=== PATIENT | female | born 1990 | race Caucasian/White ===

== ENCOUNTER 2017-01-14 10:49 | Observation (INO) ==
[2017-01-14 11:25] LABS: Bilirubin,Urine Negative (Negative); Blood,Urine Negative (Negative); Clarity,Urine Cloudy (Clear); Color,Urine Yellow (Yellow); Glucose,Urine (UA) Normal (Normal); Ketones,Urine Negative (Negative); Leukocyte Esterase,Urine Moderate (Negative); Nitrite,Urine Negative (Negative); Protein,Urine Negative (Neg-Trace); Urobilinogen,Urine Normal (Normal)
[2017-01-14 11:26] LABS: INR 1.1; Prothrombin Time 11.5 Seconds (9.4-12.1)
[2017-01-14 11:28] LABS: Bacteria,Urine None Seen per hpf (None-Few); Hyaline Casts,Urine None Seen per lpf (None-Few); RBC,Urine 0-3 per hpf (0-3); Squamous Epithelial Cell,Urine Many per lpf (None-Few)
[2017-01-14 11:29] LABS: Activated Partial Thrombo Time 29.5 Seconds (26.0-36.0)
--- NOTE | 2017-01-14 11:41 | OB/GYN Progress Note ---
Date of Encounter: 01/14/17 Time of Encounter: 11:38 - Assessment and Plan (1) 23 weeks gestation of Current Visit: Yes Status: Acute Patient here for observation (2) Fall Current Visit: Yes Status: Acute Coags, KB and monitoring. Qualifiers: Encounter type: initial encounter Qualified Code(s): W19.XXXA - Unspecified fall, initial encounter Subjective - Subjective Principal diagnosis: fall Interval history: Patient is 26 y/o female G1PO at 23w5d with EDC of 05/08/2017 presents to labor and delivery after falling at work around 1050. Patient was working at [employer] and slipped on wet floor. Patient states she landed on right leg and hand but felt a sharp pain in her lower abdomen. Patient denies LOF or VB. Patient reports +FM. Blood type is A+. Patient denies any complications with . Coags, KB and urinalysis sent to lab. Antepartum ROS: movement normal, no loss of fluid, no vaginal bleeding, no contractions Objective - Exam FHR: auscultation normal FHR comments: 155 bpm moderate variability + accels. appropriate for gestational age. Auscultation: bilateral: normal Abdomen: Present: normal appearance, soft, gravid Comments: No bruising noted on right side of abdomen. Bruising noted on right leg. Patient reports soreness. - Labs Labs: Abnormal lab results Urine Clarity Cloudy (Clear) A 01/14/17 11:10 Ur Leukocyte Esterase Moderate (Negative) H 01/14/17 11:10 Urine Microscopic WBC 5-15 per hpf (0-3) H 01/14/17 11:10 Ur Squamous Epith Cells Many per lpf (None-Few) H 01/14/17 11:10
== END 2017-01-14 13:30 | disposition home or self-care (01) ==
LOC: 1NENULAB
PROVIDERS: ADMIT Student in an Organized Health Care Education/Training Program; ATTEND Student in an Organized Health Care Education/Training Program

== ENCOUNTER 2017-04-14 20:51 | Observation (INO) ==
[2017-04-14 21:40] LABS: Bilirubin,Urine Negative (Negative); Blood,Urine Negative (Negative); Clarity,Urine Cloudy (Clear); Color,Urine Yellow (Yellow); Glucose,Urine (UA) Normal (Normal); Ketones,Urine Negative (Negative); Leukocyte Esterase,Urine Moderate (Negative); Nitrite,Urine Negative (Negative); Protein,Urine 100 mg/dL (Neg-Trace); Urobilinogen,Urine Normal (Normal)
[2017-04-14 21:42] LABS: Bacteria,Urine Few per hpf (None-Few); Hyaline Casts,Urine None Seen per lpf (None-Few); Squamous Epithelial Cell,Urine Many per lpf (None-Few); WBC,Urine 15-30 per hpf (0-3)
--- NOTE | 2017-04-15 12:29 | OB/GYN Progress Note ---
Date of Encounter: 04/14/17 Time of Encounter: 22:00 - Assessment and Plan (1) Pelvic pain affecting in third trimester, antepartum Status: Acute Pt symptoms consistent with UTI. UA sent for culture. Will empirically treat with keflex 500mg po bid for 7 days. Leena RN to call in rx for patient. Discharged to home with labor precautions. Discussed patient with Dr. Martin (2) Urinary pain Status: Acute Subjective - Subjective Interval history: Per RN report. Pt in traige complaining of lower pelvic pressure adn pain with urination. Denies vaginal bleeding or leaking of fluid Antepartum ROS: new complaints, movement normal, no loss of fluid, no vaginal bleeding Objective - Vital Signs Vital Signs: Intake and Output 04/14/17 04/15/17 04/15/17 23:59 07:59 15:59 Other: Weight 95.4 kg - Exam FHR comments: Reactive per RN - Labs Labs: Abnormal lab results Urine Clarity Cloudy (Clear) A 04/14/17 21:28 Ur Specific [place] 1.030 (1.010-1.025) H 04/14/17 21:28 Urine Protein 100 mg/dL (Neg-Trace) H 04/14/17 21:28 Ur Leukocyte Esterase Moderate (Negative) H 04/14/17 21:28 Urine Microscopic RBC 5-15 per hpf (0-3) H 04/14/17 21:28 Urine Microscopic WBC 15-30 per hpf (0-3) H 04/14/17 21:28 Ur Squamous Epith Cells Many per lpf (None-Few) H 04/14/17 21:28 Ur Culture Indicated? YES (NO) A 04/14/17 21:28
== END 2017-04-14 22:27 | disposition home or self-care (01) ==
LOC: 1NENULAB
PROVIDERS: ADMIT Obstetrics & Gynecology; ATTEND Obstetrics & Gynecology

== ENCOUNTER 2017-04-22 17:50 | Inpatient (IN) ==
[2017-04-22 16:12] LABS: Basophils % 0.3 %; Eosinophils # 0.3 K/mcL (0.0-0.6); Eosinophils % 2.8 %; Hemoglobin 10.5 g/dL (11.5-15.4); Immature Granulocytes % 0.7 % (0-4); Lymphocytes # 1.5 K/mcL (0.6-4.6); Mean Corpuscular HGB Conc 31.8 g/dL (31.6-35.5); Mean Corpuscular Hemoglobin 24.8 pg (28.0-33.3); Mean Platelet Volume 11.1 fL (9.4-12.4); Monocytes # 0.7 K/mcL (0.0-1.3); Monocytes % 6.8 %; Platelet Count 250 K/mcL (140-400); Red Blood Count 4.23 M/mcL (3.82-4.97); Red Cell Distribution Width 15.8 % (11.5-14.5); Segmented Neutrophils % 73.4 %
[2017-04-22 16:28] LABS: Alanine Aminotransferase 14 Units/L (0-55); Aspartate Amino Transferase 16 Units/L (5-34); BUN/Creatinine Ratio 13 (6-26); Blood Urea Nitrogen 7 mg/dL (7-20); Lactate Dehydrogenase 183 Units/L (159-327); Uric Acid 4.6 mg/dL (2.6-6.0); eGFR For African Americans > 60 (> 60); eGFR For Non-African Americans > 60 (> 60)
[2017-04-22 17:26] LABS: Protein/Creatinine Ratio,Urine 0.8 mg/mg (0-0.20)
--- NOTE | 2017-04-22 17:57 | OB/GYN History & Physical ---
Date of Encounter: 04/22/17 Time of Encounter: 17:52 Assessment and Plan (1) Pre-eclampsia Current visit: Yes Status: Acute BPs normal to mild range Protein/creatinine ratio 0.8 Admit for IOL for pre-eclampsia at term Plan for cytotec and mims Epidural when requested Magnesium if BPs severe range or patient becomes symptomatic. Anticipate . Plan of care per discussion with Dr. Frye. Qualifiers: Trimester: third trimester Qualified Code(s): O14.93 - Unspecified pre- eclampsia, third trimester (2) 37 weeks gestation of Current visit: Yes Status: Acute (3) Obesity affecting in third trimester, antepartum Current visit: Yes Status: Acute (4) Rubella non-immune status, antepartum Current visit: Yes Status: Acute Vaccine History of Present Illness Chief complaint: PIH evaluation HPI: Ms. John is a 26 year old female 37w5d G1 that presents to L & D from the office for PIH evaluation. In the office, BPs were 140s/90s and 150s/90s. Patient currently denies any headaches, dizziness, visual changes, and RUQ pain at this time. Patient denies any problems with her or other complaints.This has been complicated by obesity and liver lesions for which she saw MFM who recommended continued care with insurance sales specialist group. Blood type A positive, GBS negative, serologies negative; Rubella non-immune. Good FM. Past Med Surg Social Fam HX - Past Medical History Medical history: no medical history Psychiatric history: anxiety, depression - Past Surgical History Surgical History: no surgical history - Social History Smoking Status: Former smoker Smokeless Tobacco Status: No Alcohol use: none Drug use: none - Family History Mother Adopted: No Family Member Ethnicity: Non- Living Status: Still Living Hx Family Cardiac Disorders: Yes (hypertension) Hx Family Respiratory Disorders: No Hx Family Cancer: Yes (endometriosis) Hx Family GI Disorders: No Hx Family Endocrine Disorder: Yes (diabetes) Hx Family Neuromuscular Disorders: No Hx Family Neurologic Disorders: No Hx Family HEENT Disorders: No Hx Family Autoimmune Disorders: No Obstetrical History - Pregnancies : 1 Medications and Allergies No Known Home Drugs 04/22/17 [History] Allergies Sulfa (Sulfonamide Antibiotics) Allergy (Verified 03/24/17 12:16) Swelling of Lip/Tongue/Throat Review of System OB All systems PM: reviewed and no additional remarkable complaints except as stated Exam - Constitutional Constitutional: well developed, well nourished, no acute distress, obese - Lungs Respiratory exam: CTAB - Cardiovascular Cardiovascular exam: RRR - Abdomen Abdomen: Present: gravid, non tender. Absent: diffuse tenderness - Extremities Extremities exam: full ROM, pedal edema (Mild bilateral edema) - Uterus Uterus exam: Present: normal size - Anus/Rectum Anus/Rectum: Present: normal perianal skin Results Result Diagrams: 04/22/17 15:55 04/22/17 15:55 Abnormal lab results Hgb 10.5 g/dL (11.5-15.4) L 04/22/17 15:55 Hct 33.0 % (35.3-44.9) L 04/22/17 15:55 MCV 78.0 fL (83.0-100.0) L 04/22/17 15:55 MCH 24.8 pg (28.0-33.3) L 04/22/17 15:55 RDW 15.8 % (11.5-14.5) H 04/22/17 15:55 Creatinine 0.54 mg/dL (0.57-1.11) L 04/22/17 15:55 Protein/Creatinin Ratio 0.80 mg/mg (0-0.20) H 04/22/17 16:00 Urine Total Protein 120 mg/dL (1-14) H 04/22/17 16:00 All other labs normal. - VTE Reasons for not Prescribing Prophylaxis: Treatment not Indicated - Low risk for VTE
--- NOTE | 2017-04-22 18:01 | Anesthesia Evaluation PreOp ---
Date of Encounter: 04/22/17 Time of Encounter: 17:59 - Past History Planned Operation: chantal Cardiac History: HTN (PIH, preeclampsia) Pulmonary History: Denies Any Significant HX LEACH TANK TENDER History: Denies Any Significant HX Other Medical History: Denies Any Significant HX Anesthesia History: No Prior Anesthetic Complications : Yes (37 weeks, ) Alcohol Use: none Drug use: none Medications and Allergies No Known Home Drugs 04/22/17 [History] Allergies Sulfa (Sulfonamide Antibiotics) Allergy (Verified 03/24/17 12:16) Swelling of Lip/Tongue/Throat - Meds/Allergy Pre-op Review Medications Reviewed: Yes Allergies Reviewed: Yes Beta Blockers on Current Med List: No Anesthesia Results - Labs 04/22/17 15:55 04/22/17 15:55 Anesthesia Exam O2 Sat Height 1.6 m Weight 95.6 kg BP 132/92 HR 80 RR 18 SPO2 98 Height: 63 Weight: 96 - HEENT Pupil (Motor): Pupils equal Mallampati: II Teeth: Normal Oral Opening: Greater than 3 - LEACH TANK TENDER LOC: Oriented LEACH TANK TENDER Motor: Normal RUE, Normal LUE, Normal RLE, Normal LLE, Normal Face LEACH TANK TENDER Sensory: Normal: RUE, LUE, RLE, LLE, Face - Cardiac Rhythm: Regular Murmur: None JVD: No Carotid Bruit: No - Pulmonary Breath Sounds: bilateral Clear Respiratory Effort: Symmetrical Anesthesia Assess/Plan ASA Score: 2 Modified [place] Scale for Level of Consciousness: Cooperative, oriented, and tranquil Anesthetic Plan: Regional Monitoring Plan: Standard Monitors
[2017-04-22] MEDS ORDERED: Famotidine 20 MG/2 ML VIAL IVP PRN (19:21)
[2017-04-22] MEDS ORDERED: Naloxone 0.4 MG/ML INJ IVP PRN (19:21)
[2017-04-22] MEDS ORDERED: miSOPROStol 25 MCG TABLET VG PRN (19:22)
[2017-04-22] MEDS ORDERED: *HR* Labetalol 20 MG/4 ML SYRINGE IVP ONE (19:24)
[2017-04-22] MEDS ORDERED: Ringers Solution, Lactated 1,000 ML ONE (19:27)
[2017-04-22] MEDS ORDERED: Magnesium Sulfate 2 GM/100 ML PIGGYBACK IV SCH (19:45)
--- NOTE | 2017-04-22 19:46 | OB Labor Progress Note ---
Date of Encounter: 04/22/17 Time of Encounter: 19:44 Labor Progress Note - Subjective Subjective: Pt comfortable at this time. She denies ZENDEJAS, vision changes, or other complaints. - Vital Signs Vital Signs: BP's severe range at this time 160's-180's/80's-100's. - Cervix Cervix: 60/-2 - Heart Tones Heart Tones: Category I - [place]: irregular and mild - Interventions Interventions: Holliday placed in cervix using sterile technique. Balloon inflated with 30ml sterile water. Pt tolerated well. - Plan Plan: Labetalol 20mg IVP x1 now. Magnesium sulfate 4gram load and then 2g per hour. Continue to monitor closely. Epidural when needed. Will AROM when able. Anticipate . POC per Dr. Frye co-managing care of this pre-eclamptic patient.
[2017-04-22] MEDS: Ringers Solution, Lactated 1,000 ML IVC SCH (19:53)
[2017-04-22] MEDS: Magnesium Sulfate 20 gm/500mL 20 GM/500 ML IV.SOLN IVC SCH (20:32)
[2017-04-22] MEDS ORDERED: *HR* Nalbuphine 20 MG/ML AMPUL IVP PRN (21:08)
[2017-04-22] MEDS ORDERED: *HR* Nalbuphine 20 MG/ML AMPUL ONE (21:09)
--- NOTE | 2017-04-22 22:13 | OB Labor Progress Note ---
Date of Encounter: 04/22/17 Time of Encounter: 22:09 Labor Progress Note - Subjective Subjective: Pt reports pain is gone with Nubain. - Cervix Cervix: 4/80/-1 - Heart Tones Heart Tones: Category I - [place]: irregular - Interventions Interventions: AROM for moderate amount clear fluid. IUPC placed - Plan Plan: Continue to monitor. Pt doing well on 2g/hr magnesium sulfate. BP now normal. Epidural when requested. Will augment with Pitocin as needed for adequate contractions. Anticipate .
[2017-04-22] MEDS ORDERED: Oxytocin 20 units/ LR 1000 mL 20 UNIT/1,000 ML BAG IVC SCH (23:45)
[2017-04-23] MEDS ORDERED: Calcium Gluconate 1,000 MG/10 ML VIAL IVPB ONE (00:24)
[2017-04-23] MEDS: Ondansetron 4 MG/2 ML VIAL IVP PRN ×2 (01:08→10:32)
[2017-04-23] MEDS ORDERED: *HR* Ropivacaine/PF 0.2% 10 ML AMPUL ONE ×2 (03:16→14:25)
[2017-04-23] MEDS ORDERED: *HR* FentaNYL (PF) 100 MCG/2 ML VIAL ONE ×2 (03:16→14:25)
[2017-04-23] MEDS ORDERED: Epidural Premix (fent/bupiv) 110 ML EP ONE ×2 (03:16→11:19)
[2017-04-23] MEDS ORDERED: *HR* FentaNYL (PF) 100 MCG/2 ML VIAL EP ONE (03:47)
[2017-04-23] MEDS ORDERED: EPHEDrine 50 MG/ML VIAL IVP PRN (03:47)
[2017-04-23] MEDS ORDERED: *HR* Ropivacaine/PF 0.2% 10 ML AMPUL EP ONE (03:47)
--- NOTE | 2017-04-23 03:50 | Anesthesia Procedures ---
Date of Encounter: 04/23/17 Time of Encounter: 03:21 Procedures: Anesthesia - Epidural/Spinal Patient ID/Chart reviewed: Yes Patient examined: Yes OB Eval: Contractions: Non-stressed pattern Consent Obtained: Yes Supplemental Oxygen: None/Room Air Site Prep: Aseptic Technique Patient position: upright Local Anesthetic: Lidocaine 1% Amount of Local Anesthetic used: 3 Touhy Needle Gauge: 18 Touhy Needle Depth (cm): 7 Catheter Depth at Skin (cm): 15 Test Dose (1.5% Lido + Epi): Volume given (mls): 3 Test Dose Result: Negative Loading Dose: 0.25% Marcaine (mls): 6 Loading Dose: Fentanyl (mcg): 100 Loading Dose: Other: 2ml nss Loading Dose Administered: Thru Touhy Needle Infusion Med: 0.125% Bupivacaine w/ 2 mcg/ml Fentanyl Infusion Rate (mls/hr): [address]: Tegaderm Interspace Used: L3-L4 Loss of Resistance (LAL): Yes Blood: No CSF: No Paresthesia: No
[2017-04-23] MEDS ORDERED: Epidural Premix (fent/bupiv) 110 ML EP SCH (04:00)
[2017-04-23] MEDS: Magnesium Sulfate 20 gm/500mL 20 GM/500 ML IV.SOLN IVC SCH (06:11)
--- NOTE | 2017-04-23 07:08 | OB Labor Progress Note ---
Date of Encounter: 04/23/17 Time of Encounter: 07:04 Labor Progress Note - Subjective Subjective: Pt comfortable with epidural - Cervix Cervix: 5/80/-1 - Heart Tones Heart Tones: Minimal variability, occassional late decelerations noted since epidural. - [place]: irregular - Interventions Interventions: IUPC replaced - Plan Plan: Continue to monitor. Fluid bolus to maintain BP in normal range. Will discuss POC with Dr. Frye and Dr. Phelps this am. Concern for no progress since 0 this am as well as concerns with FHT tracing due to lower BP since epidural.
[2017-04-23] MEDS ORDERED: Ringers Solution, Lactated 500 ML IVC ONE (08:15)
[2017-04-23] MEDS ORDERED: Acetaminophen 325 MG TABLET PO ONE (10:18)
[2017-04-23] MEDS: Ringers Solution, Lactated 1,000 ML IVC SCH ×2 (10:27→23:57)
--- NOTE | 2017-04-23 12:28 | OB Labor Progress Note ---
Date of Encounter: 04/23/17 Time of Encounter: 12:26 Labor Progress Note - Subjective Subjective: Pt comfortable with epidural, feeling more pressure - Vital Signs Vital Signs: 126/64 - Cervix Cervix: 7/90/-1 - Heart Tones Heart Tones: RNST - Interventions Interventions: will decrease Magnesium to 1 gm/hr - Plan Plan: Expect
[2017-04-23] MEDS ORDERED: Magnesium Sulfate 20 gm/500mL 20 GM/500 ML IV.SOLN IVC SCH ×2 (12:30→18:15)
--- NOTE | 2017-04-23 14:35 | Anesthesia Progress Note ---
Date of Encounter: 04/23/17 Time of Encounter: 14:33 Anesthesia Note - Note Note: Called to patient bedside to evaluate breakthrough labor pain. Pt c/o 10/10 bilateral lower abdominal pain. Patient positioned from R side down to supine. 5mL of 0.2% ropivicaine + 100mcg fentanyl administered via epidural catheter. VSS 04/23/17 14:33
[2017-04-23] MEDS ORDERED: Lidocaine 1% 20 ML MDV ONE (16:59)
--- NOTE | 2017-04-23 17:35 | OB/GYN Procedure Note ---
Delivery - Delivery Date: 04/23/17 Provider: Kenna Montiel Intrapartum events: none Delivery induction: AROM, oxytocin, mims, misoprostol Delivery monitor: external FHT, external uterine, internal uterine Anesthesia: epidural Estimated Blood Loss: 100 - Infant (s) Infant A Infant Delivery Date: 04/23/17 Infant Delivery Time: 16:53 Presentation: vertex Position: YUNI Route of delivery: Gender: Female Viability: Viable Weight Gram: 2.78 kg at 1 minute: 4 at 5 mins: 9 Shoulder Dystocia: not encountered Specimens collected: cord blood Placenta: spontaneous Cord: 3 umbilical vessels - Repair Episiotomy: none Laceration Description: Perineal - 1st Degree - Complications Delivery complications: none Delivery comments: Pt complete, directed maternal bearing down efforts to of a liveborn girl, vertex delivered YUNI, shoulders easily followed, no nuchal or shoulder dystocia encountered, bradycardia noted at end of delivery. placed on maternal abdomen, and no spontaneous respirations noted umbilical cord clamped and cut and infant passed to nursery staff. Placenta delivered spontaneously (Alonzo) , fundus firm, Pitocin per policy EBL 100. First-degree perineal laceration noted left hemostatic and unrepaired. Dr. Phelps arrived for delivery at end of delivery, delivery performed by CNM. - Disposition Mom disposition: stable in LDR disposition: stable in LDR
[2017-04-23] MEDS ORDERED: Lanolin 28 GM TUBE TP PRN (17:56)
[2017-04-23] MEDS ORDERED: Measles/Mumps/Rubella Vacc 0.5 ML VIAL SQ PRN (17:56)
[2017-04-23] MEDS ORDERED: Acetaminophen 325 MG TABLET PO PRN (17:56)
[2017-04-23] MEDS ORDERED: Oxytocin 20 units/ LR 1000 mL 20 UNIT/1,000 ML BAG IVC SCH (17:56)
[2017-04-23] MEDS ORDERED: Benzocaine/Menthol 56 GM AEROSOL SPRAY TP PRN (17:56)
--- NOTE | 2017-04-23 18:46 | Event Note ---
Date of Encounter: 04/23/17 Time of Encounter: 18:45 RN updated CNM about elevated BP in PP recovery period. Disucssed with Dr. Phelps. Will order labetalol 200mg pox1 now
[2017-04-23] MEDS: Ibuprofen 600 MG TABLET PO PRN (19:10)
[2017-04-23] MEDS ORDERED: Ringers Solution, Lactated 1,000 ML ONE (23:44)
[2017-04-24 06:47] LABS: Basophils # 0.1 K/mcL (0.0-0.2); Basophils % 0.3 %; Eosinophils # 0.1 K/mcL (0.0-0.6); Eosinophils % 0.8 %; Hematocrit 29.6 % (35.3-44.9); Hemoglobin 9.4 g/dL (11.5-15.4); Immature Granulocytes % 0.6 % (0-4); Lymphocytes # 2.6 K/mcL (0.6-4.6); Lymphocytes % 16.3 %; Mean Corpuscular HGB Conc 31.8 g/dL (31.6-35.5); Mean Corpuscular Hemoglobin 25.2 pg (28.0-33.3); Mean Corpuscular Volume 79.4 fL (83.0-100.0); Mean Platelet Volume 11.3 fL (9.4-12.4); Monocytes % 6.4 %; Neutrophils # 11.9 K/mcL (1.6-8.9); Platelet Count 244 K/mcL (140-400); Red Blood Count 3.73 M/mcL (3.82-4.97); Red Cell Distribution Width 15.9 % (11.5-14.5); Segmented Neutrophils % 75.6 %
--- NOTE | 2017-04-24 08:30 | OB/GYN Progress Note ---
Date of Encounter: 04/24/17 Time of Encounter: 08:23 - Assessment and Plan (1) PIH ( induced hypertension) Current Visit: Yes Status: Acute Magnesium x 24 VSS Continue to monitor vitals closely Continue routine PIH care Qualifiers: Trimester: third trimester Qualified Code(s): O13.3 - Gestational [ -induced] hypertension without significant proteinuria, third trimester (2) Vaginal delivery Current Visit: Yes Status: Acute Doing well day 1 Continue routine management Anticipate discharge home tomorrow as long as Vital signs remain stable Subjective - Subjective Principal diagnosis: PIH Interval history: Patient doing well Day 1 vaginal delivery On magnesium for 24 hours due to PIH VSS Passing flatus, mims catheter in place Pain well controlled Patient is both breast and bottle feeding Anticipate discharge home tomorrow if vital signs remain stable. Patient reports: appetite normal, voiding normally (Mims catheter present), pain well controlled, ambulating normally (bedrest for magnesium) : doing well, nursing well, bottle feeding Objective - Latest Vital Signs Latest vital signs: Vital Signs Temp Pulse Resp BP Pulse Ox 04/24/17 07:00 98.1 F 75 14 131/81 97 04/24/17 06:10 98.5 F 85 14 114/73 97 04/24/17 05:00 98.2 F 82 14 113/73 97 04/24/17 04:00 98.2 F 83 14 106/69 97 04/24/17 03:00 74 16 110/64 04/24/17 02:10 98.3 F 92 14 123/74 97 04/24/17 01:05 98.2 F 79 14 121/74 96 04/24/17 00:10 98.0 F 78 16 117/74 97 04/23/17 23:10 98.1 F 81 16 114/71 97 04/23/17 22:10 77 14 131/74 04/23/17 22:00 97.9 F 77 14 131/74 97 04/23/17 21:16 97.9 F 73 16 128/81 97 04/23/17 20:00 97.8 F 83 16 148/87 98 Intake and Output 04/23/17 04/24/17 04/24/17 23:59 07:59 15:59 Intake Total 1000 / 1000 Output Total 1575 / 1575 1800 / 1800 Balance -575 / -575 -1800 / -1800 Intake: IV Fluids 1000 / 1000 Lactated Ringers 1,000 ML 1000 / 1000 @ 125 mls/hr IVC .Q8H [facility] Rx#:[id number] Output: Urine 1175 / 1175 925 / 925 Estimated Blood Loss 100 / 100 Catheter 300 / 300 875 / 875 Other: Stool Characteristics Normal for Patient Normal for Patient Weight 93.667 kg - Exam Lungs: bilateral: normal Chest: Normal S1, Normal S2 Extremities: Present: normal Abdomen: Present: normal appearance, soft. Absent: gravid Uterus: Present: normal, firm Uterus Position: 1 Finger Below Umbilicus, Midline - Labs Labs: Laboratory Results - last 24 hr 04/23/17 04/24/17 15:09 06:37 WBC 15.8 H D RBC 3.73 L Hgb 9.4 L Hct 29.6 L MCV 79.4 L MCH 25.2 L MCHC 31.8 RDW 15.9 H Plt Count 244 MPV 11.3 Immature Gran % 0.6 Seg Neutrophils % 75.6 Lymphocytes % 16.3 Monocytes % 6.4 Eosinophils % 0.8 Basophils % 0.3 Neutrophils # 11.9 H Lymphocytes # 2.6 Monocytes # 1.0 Eosinophils # 0.1 Basophils # 0.1 Magnesium 4.3 H
[2017-04-24] MEDS: Prenatal Vit/FA 1 EACH TABLET PO SCH (09:37)
[2017-04-24] MEDS: Ibuprofen 600 MG TABLET PO PRN ×2 (09:40→19:42)
[2017-04-24] MEDS ORDERED: Ringers Solution, Lactated 1,000 ML ONE (10:12)
[2017-04-24] MEDS ORDERED: Ringers Solution, Lactated 1,000 ML IVC SCH (10:30)
[2017-04-25] MEDS: Ibuprofen 600 MG TABLET PO PRN (05:52)
--- NOTE | 2017-04-25 09:26 | Discharge Summary ---
Date of Encounter: 04/25/17 Time of Encounter: 09:24 - Discharge Diagnosis (1) Breast feeding status of mother Priority: Secondary Status: Acute Comments: support prn (2) Vaginal delivery Priority: Primary Status: Acute Comments: continue routine care discharge home today follow up in 4-6 weeks with CNM (3) PIH ( induced hypertension) Priority: Secondary Status: Acute Comments: Continue labetalol 200mg po BID follow up in 1 week for nurse visit for BP check Qualifiers: Trimester: third trimester Qualified Code(s): O13.3 - Gestational [ -induced] hypertension without significant proteinuria, third trimester - Discharge Medications Prescriptions: Ibuprofen [Motrin] 600 mg PO Q6HR PRN #60 tablet PRN Reason: Cramping Breast Pump [BREAST PUMP] 1 each .ROUTE AD #1 each Labetalol [Trandate] 200 mg PO BID #60 tablet Home Medications: Breast Pump [BREAST PUMP] 1 each .ROUTE AD #1 each 04/25/17 [Rx] Ibuprofen [Motrin] 600 mg PO Q6HR PRN #60 tablet 04/25/17 [Rx] Labetalol [Trandate] 200 mg PO BID #60 tablet 04/25/17 [Rx] Vit/FA 1 each PO DAILY tablet 04/25/17 [Rx] Allergies/Adverse Reactions: Allergies Sulfa (Sulfonamide Antibiotics) Allergy (Verified 03/24/17 12:16) Swelling of Lip/Tongue/Throat Data Procedures and tests throughout hospitalization: Laboratory Tests 04/22/17 04/22/17 04/22/17 15:55 15:55 16:00 WBC 9.6 RBC 4.23 Hgb 10.5 L Hct 33.0 L MCV 78.0 L MCH 24.8 L MCHC 31.8 RDW 15.8 H Plt Count 250 MPV 11.1 Immature Gran % 0.7 Seg Neutrophils % 73.4 Lymphocytes % 16.0 Monocytes % 6.8 Eosinophils % 2.8 Basophils % 0.3 Neutrophils # 7.0 Lymphocytes # 1.5 Monocytes # 0.7 Eosinophils # 0.3 Basophils # 0.0 BUN 7 Creatinine 0.54 L Est GFR ( Amer) > 60 Est GFR (Non-Af Amer) > 60 BUN/Creatinine Ratio 13 Uric Acid 4.6 Magnesium AST 16 ALT 14 Lactate Dehydrogenase 183 Urine Creatinine 151 Protein/Creatinin Ratio 0.80 H Urine Total Protein 120 H 04/23/17 04/24/17 15:09 06:37 WBC 15.8 H D RBC 3.73 L Hgb 9.4 L Hct 29.6 L MCV 79.4 L MCH 25.2 L MCHC 31.8 RDW 15.9 H Plt Count 244 MPV 11.3 Immature Gran % 0.6 Seg Neutrophils % 75.6 Lymphocytes % 16.3 Monocytes % 6.4 Eosinophils % 0.8 Basophils % 0.3 Neutrophils # 11.9 H Lymphocytes # 2.6 Monocytes # 1.0 Eosinophils # 0.1 Basophils # 0.1 BUN Creatinine Est GFR ( Amer) Est GFR (Non-Af Amer) BUN/Creatinine Ratio Uric Acid Magnesium 4.3 H AST ALT Lactate Dehydrogenase Urine Creatinine Protein/Creatinin Ratio Urine Total Protein Date of admission: 04/22/17 17:50 Primary care physician: Jeannie Zamudio CNP Consults: 04/23/17 17:56 Consult to Event Manager [CONS] Routine Comment: Vaginal delivery, consult needed Discharging clinician: Abril Bland Anticipated date of discharge: 04/25/17 - Patient Status Disposition: Home, Self-Care Condition: Good Functional capacity at discharge: independent ambulation - Discharge Instructions Follow Up With: Jeannie Zamudio CNP [Primary Care Provider] - Faith Harp CNM [Non-Partnered Physician] - - Diet and Activity Activity: increase activity as tolerated Diet: regular diet Hospital Course Reason for admission: induction of labor (for PIH) Delivery: Episiotomy: none Other procedures: none complications: none Discharge diagnosis: IUP at term delivered baby: female Hospital course: Discussed patient with Dr. Dolan. Time Attestation: Total time spent providing and/or coordinating discharge services: Time Spent: Less than 30 minutes Exam - Constitutional Vitals: Temp Pulse Resp BP Pulse Ox 98.2 F 74 16 135/88 97 04/25/17 03:20 04/25/17 03:20 04/25/17 03:20 04/25/17 03:20 04/25/17 03:20 General appearance IM: A&O X 3, pleasant, answers questions appropriately - Respiratory Respiratory exam: Present: CTAB - Cardiovascular Cardiovascular exam IM: Present: RRR, +S1, +S2 - GI/Abdominal GI/Abdominal exam IM: normal bowel sounds - Uterine Tone: Firm Uterus Position: 1 Finger Below Umbilicus - Extremities Exam Extremities exam IM: Present: normal capillary refill, normal inspection - Neurological Exam Neurological exam: alert, oriented X3, reflexes normal
[2017-04-25] MEDS: Prenatal Vit/FA 1 EACH TABLET PO SCH (09:27)
[2017-04-25 10:09] VITALS: BP 161/97
== END 2017-04-25 13:51 | disposition home or self-care (01) | DRG 560 ==
LOC: 1NENULAB → 1NENUOBS 04-23 20:01
PROVIDERS: ADMIT Obstetrics & Gynecology; ATTEND Obstetrics & Gynecology